=== PATIENT | female | born 2000 | race Caucasian/White ===

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

== ENCOUNTER 2018-07-22 20:57 | Emergency (ER) | payer BC, OTHER ==
[2018-07-22] MEDS ORDERED: Acetaminophen 500 MG TAB ONE (21:19)
[2018-07-22] MEDS ORDERED: Oxymetazoline HCl 0.05% ( 15 ML ) ONE (22:10)
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
== END 2018-07-22 22:21 | disposition home or self-care (01) ==
LOC: ERS 20:57
DX: R04.0 Epistaxis (principal); F41.9 Anxiety disorder, unspecified; F32.9 Major depressive disorder, single episode, unspecified; F17.210 Nicotine dependence, cigarettes, uncomplicated; V43.62XA Car passenger injured in collision with other type car in traffic accident, initial encounter
CPT/HCPCS: 70450; 70486